=== PATIENT | male | born 1940 | race Caucasian/White ===

== ENCOUNTER → 2018-01-17 | Outpatient (CLI) | payer MEDICARE, OTHER ==
[~2018-01-17] MED LIST: CARDI-OMEGA1000 MG PO; CELEBREX 200MG200 MG PO; CENTRUM SILVER1 CTB PO; CENTURY SENIOR PO; FERROUS SU325 MG/TAB PO; FOLIC ACID 40400 MCG PO; IRON325 M1 PO; ULTRAM 50MG TAB50 MG PO; VITAMIN C500 MG PO; VITAMIN D 1001000 IU PO; XARELTO10 MG PO
== END ==
LOC: COL.RAD 08:49
DX: Z85.46 Personal history of malignant neoplasm of prostate (principal); Z96.641 Presence of right artificial hip joint
CPT/HCPCS: A9503

== ENCOUNTER 2022-05-24 10:39 | Inpatient (IN) | payer MEDICARE ==
[~2022-05-24] VITALS: Ht 190.5 cm; Wt 83.1 kg
[~2022-05-24 10:39] MED LIST changes: +COZAAR 25MG25 MG/TAB PO; +OSCAL 500 TAB500 MG PO; +TOPROL XL 25MG25 MG PO
[2022-05-24] MEDS ORDERED: ASPIRIN 81M81 MG/TA2 PO (13:35)
[2022-05-24] MEDS ORDERED: NORCO 325 MG-51 TAB PO (13:36)
[2022-05-24] MEDS ORDERED: DOXYCYCLINE 10100 MG PO (13:36)
[2022-05-24 15:24] VITALS: BP 111/60; PULSE 89; TEMP 98.7
--- NOTE | 2022-05-24 16:10 | NUR ---
PATIENT ARRIVED TO REHAB AT 324PM. PATIENT ALERT AND ORIENTED AND CAME FROM SURGICAL UNIT. PATIENT HAD A LEFT HIP REPLACEMENT. LUNG CLEAR , BOWEL SOUND ACTIVE AND HAD A LARGE BOWEL MOVEMENT. PATIENT ABLE TO EAT AND TALK WITH OUT ANY ISSUE. PATIENT WEAR GLASS AND HEARING AIDES. PATIENT STATED THAT HIS RIGHT EAR IS CLOG UP AND NEED DEBROX .
[2022-05-24 18:07] VITALS: BP 120/47; PULSE 93; TEMP 98.2
--- NOTE | 2022-05-24 19:06 | NUR ---
RECEIVED CHANGE OF SHIFT REPORT FROM DAY SHIFT RN. PATIENT UP IN CHAIR, SLEEPING, DID NOT WAKE DURING NURSING ROUNDS, EXIT ALARM ON, CALL LIGHT WITHIN REACH. BREATHING NONLABORED AND EVEN.
[2022-05-24 20:50] VITALS: BP 116/56; PULSE 94
[2022-05-25 05:18] VITALS: BP 113/54; PULSE 85; TEMP 98.8
--- NOTE | 2022-05-25 07:10 | NUR ---
Shift report received from fuel retrofitting technician RN
--- NOTE | 2022-05-25 07:16 | NUR ---
CHANGE OF SHIFT REPORT GIVEN TO DAY SHIFT RNTRACEE.
--- NOTE | 2022-05-25 10:24 | NUR ---
Follow-up visit; Patient thanked Sql Database Programmer for checking in on him in Rehab. He is doing ok and had a shower which made him feel good. Sql Database Programmer wished him a good day and God's blessings.
--- NOTE | 2022-05-25 12:08 | NUR ---
Pt sitting up in recliner with BLE elevated on footrest. Pt reports mild left hip pain after morning PT/OT sessions but denies the need for pain medication at this time. Blanchable redness noted to coccyx; skin is intact. Waffle overlay placed on bed mattress. Air cushion placed in recliner. Pt denies additional needs at this time. Call light is in his reach. Chair alarm is on
--- NOTE | 2022-05-25 13:11 | NUR ---
Pt is off the unit to work with PT
--- NOTE | 2022-05-25 15:36 | NUR ---
SW met with the patient to complete intake, as the patient is new to [facility]. The patient lives in [place] with his daughter, Della (ph#[phone]), and granddaughter. He shares that his daughter is building a home in [place], so they will be staying with him for probably around 7 months. He reports independence with ADLs before surgery and has a cane, walker, showerbench, and [id number]. The patient's PCP is Dr. Ricardo Huang and he receives his medications from [facility]. The patient's DPOA-HC is in EMR and it designates his daughter, Della, and son, Vineet. Vineet lives in [place]. The patient states that therapy has worked him and he is sore now, but it is to be expected. He had no concerns for SW.
[2022-05-25 17:09] VITALS: BP 119/81; PULSE 97; TEMP 98.2
--- NOTE | 2022-05-25 20:15 | NUR ---
PT ASSISTED TO BR WITH WALKER BY JOSE ROBERTO. PT HAD LEAKED SOME URINE AROUND BSC. CLEANED UP. ASSISTED BACK TO BED. PT ABLE TO LOOSEN AFO BLE AND WITH MINIMAL ASSIST REMOVE . PT WEARS BRIEFS FOR MINIMAL URINARY LEAKAGE. CHANGED BRIEFS. REMOVED PANTS FOR THE NIGHT. WANTED SAME SHIRT LEFT ON. NEEDED ASSIST LIFTING LEGS INTO BED. SCD'S ON BILAT. CALL LIGHT IN REACH. BED ALARM SET.
[2022-05-26 05:22] VITALS: BP 133/63; PULSE 83; TEMP 97.4
--- NOTE | 2022-05-26 07:00 | NUR ---
BEDSIDE REPORT DONE WITH CLAUDIA.CALL LIGHT IN REACH
--- NOTE | 2022-05-26 09:48 | NUR ---
ASSESSMENT DONE ORDER. LUNG CLEAR IN ALL LOBES. BOWEL SOUND ACTIVE IN ALL 4 QUADS. ABLE TO GET UP WITH ASSISTANCE. USE WALKER AND GAIT BELT. PATIENT USE AFO FOR SHOES.
[2022-05-26 17:34] VITALS: BP 125/43; PULSE 72; TEMP 97.6
--- NOTE | 2022-05-26 20:30 | NUR ---
PT SITTING IN RECLINER. ASSISTED TO BR WITH WALKER. UNSTEADY. WEAR AFO'S IN SHOES. HAD LG LOOSE BROWN BM. PT ABLE TO PROVIDE OWN PERICARE. ASSISTED BACK TO BED. CHANGED CLOTHES W/ MINIMAL ASSIST. ABLE TO LIFT LEGS INTO BED. SCD'S ON BILAT. PILLOW BETWEEN LEGS. READY FOR SLEEP. CALL LIGHT IN REACH. BED ALARM SET.
--- NOTE | 2022-05-26 21:25 | NUR ---
Has lack of transportation kept you from medical appts, meetings, work, or from getting things needed for daily living? NO How often do you feel lonely or isolated from those around you? NEVER Over the past 5 days, how much of the time has pain made it hard for you to sleep? FREQUENTLY Over the past 5 days, how often have you limited your participation in therapy due to pain? RARELY/NOT AT ALL Over the past 5 days, how often have you limited your day-to-day activities because of pain? RARELY/NOT AT ALL Have you had 2 or more falls in the past year or any fall with an injury? NO Did you have major surgery during the 100 days prior to admission? YES
[2022-05-27 06:00] VITALS: BP 145/86; PULSE 86; TEMP 98.3
--- NOTE | 2022-05-27 06:12 | NUR ---
PT HAS WELL THROUGH THE NIGHT . NO DISTRESS.
--- NOTE | 2022-05-27 06:52 | NUR ---
Shift report received from manager foreign RN
--- NOTE | 2022-05-27 09:09 | NUR ---
Pt is off the unit for PT
--- NOTE | 2022-05-27 11:42 | NUR ---
Pt is back in his room after Group Therapy. He is sitting up in the recliner w/ BLE elevated on the footrest. Aquacell to left hip is CDI. He reports minimal left hip discomfort but denies the neeeds for pain medication at this time. He denies additional needs. Call light is in his reach. Chair alarm is on
[2022-05-27 17:30] VITALS: BP 132/42; PULSE 95; TEMP 97.9
--- NOTE | 2022-05-27 23:19 | NUR ---
Pt in recliner for shift assessment at 2014. A&O x4. Requesting assistance to use the restroom at this moment. Gait belt and walker used to ambulate. Left hip dressing is CDI. No IV line. Continent loose BM. SCDs placed. Medications given per emar. Belongings and call light within reach.
[2022-05-28 05:24] VITALS: BP 139/73; PULSE 79; TEMP 97.9
--- NOTE | 2022-05-28 05:57 | NUR ---
Pt requested assistance once during the night for emptying his urinal. Uneventful night. No needs or concerns expressed. Pt denies any pain or discomfort. Call light and belongings are within reach.
--- NOTE | 2022-05-28 06:44 | NUR ---
Shift report received from operation shift supervisor RN
--- NOTE | 2022-05-28 10:24 | NUR ---
Pt supervised as he positioned independently to sit on edge of bed. CGA provided as he moved to standing position. SBA/CGA while ambulating to toilet w/ FWW. Pt independent with toilet hygiene and clothing mgmt after toileting with supervision provided d/t Fall Policy. SBA while pt standing at sink to brush his teeth and wash his hands. SBA while pt ambulated from sink to recliner. Lt. hip aquacell CDI. Pt reports minimal pain but denies the need for pain medication. Denies additional needs. Call light is in his reach. Chair alarm is on.
[2022-05-28 17:28] VITALS: BP 138/64; PULSE 86; TEMP 98.3
--- NOTE | 2022-05-28 20:00 | NUR ---
ASSISTED PT TO BR FROM RECLINER WITH WALKER. PT ABLE TO MANAGE TOILETING TASKS. HAD LG LOOSE BROWN BM. CHANGED BRIEFS. DOES HAVE SOME URINARY LEAKAGE. TO BED. ABLE TO LIFT LEGS INTO BED PER SELF. SCD'S ON BILAT. CALL LIGHT IN REACH. BED ALARM SET.
[2022-05-29 05:27] VITALS: BP 137/73; PULSE 77; TEMP 97.8
--- NOTE | 2022-05-29 06:54 | NUR ---
Shift report received from automation sales manager RN
--- NOTE | 2022-05-29 08:31 | NUR ---
Call placed to Dr. Krueger's office re: When can left hip aquacell be changed or how often. Dressing is CDI. Transformer Assembly Supervisor stated that Dr. Krueger is in surgery for most of the morning and will call back.
--- NOTE | 2022-05-29 09:51 | NUR ---
Dressing change order found in physician's progress notes: may remove on POD#5, if saturated, may replace.
--- NOTE | 2022-05-29 11:14 | NUR ---
Pt is off the unit for PT
--- NOTE | 2022-05-29 11:27 | NUR ---
Pt back in room after PT. Left hip Aquacell CDI. Removed dressing and incision left DANY. No drainage, redness, swelling. Incision well approximated
--- NOTE | 2022-05-29 13:26 | NUR ---
Admission QIM scores were reviewed by the team. Code of 5 chosen for eating was determined by team discussion to be the most usual performance before interventions for this patient during the assessment period. Code of 4 chosen for toilet hygiene was determined by team discussion to be the most usual performance before interventions for this patient during the assessment period. Code of 3 chosen for toilet transfer was determined by team discussion to be the most usual performance before interventions for this patient during the assessment period. Code of 3 chosen for lower body dressing was determined by team discussion to be the most usual performance before interventions for this patient during the assessment period. Code of 2 chosen for putting on/taking off footwear was determined by team discussion to be the most usual performance before interventions for this patient during the assessment period. Code of 3 chosen for sit to lying was determined by team discussion to be the most usual performance before interventions for this patient during the assessment period. Code of 4 chosen for lying to sitting on side of bed was determined by team discussion to be the most usual performance before interventions for this patient during the assessment period. Code of 3 chosen for sit to stand was determined by team discussion to be the most usual performance for this patient during the discharge assessment period. Code of 3 chosen for chair/bed to chair transfer was determined by team discussion to be the most usual performance before interventions for this patient during the assessment period. Code of 4 chosen for walk 10 feet was determined by team discussion to be the most usual performance for this patient during the discharge assessment period.--PD Parul
--- NOTE | 2022-05-29 15:29 | NUR ---
Right ear irrigation performed using warm water and syringe. Pt seated in upright position during irrigation. Moderate amount of dark brown to light brown debris noted in emesis basin used for water collection during the irrigation. TM shiny, steele, with adonay appearance after ear irrigation. Pt denies dizziness or pain during ear irrigation and after.
--- NOTE | 2022-05-29 16:07 | NUR ---
Pt reporting irritation to left hip incision from pullup diaper rubbing against it while he is working with PT or walking. Partial air strip dressing applied over incision. Proximal end of incision is red. No drainage.
[2022-05-29 17:39] VITALS: BP 122/65; PULSE 90; TEMP 98
--- NOTE | 2022-05-29 18:15 | NUR ---
Pt sitting up in recliner. He ate 100% of his dinner independently. He denies right ear pain or dizziness. He reports that he is able to hear better as his right hearing aid fits better into his ear. He denies general pain/discomfort. Denies additional needs. Call light is in his reach. Chair alarm is on.
--- NOTE | 2022-05-29 19:00 | NUR ---
RECEIVED CHANGE OF SHIFT REPORT FROM DAY SHIFT RN.
[2022-05-29 22:17] VITALS: BP 122/52
[2022-05-30 05:16] VITALS: BP 137/54; PULSE 80; TEMP 97.8
--- NOTE | 2022-05-30 06:43 | NUR ---
CHANGE OF SHIFT REPORT GIVEN TO DAY SHIFT RNVINNIE.
--- NOTE | 2022-05-30 08:25 | NUR ---
Pt. sitting up in bed. Pt. is A&OX3, assessment complete. Pt. assisted with 1 assist, gait belt and walker to the bathroom then to the chair. Pt. denies pain or other needs, call light within reach.
--- NOTE | 2022-05-30 14:44 | NUR ---
Coding And Reimbursement Specialist met with patient to check in. Patient stated rehab is going well and he has no questions or concerns this afternoon. SW advised she would follow up again after team conference.
[2022-05-30 17:30] VITALS: BP 139/68; PULSE 96; TEMP 99
--- NOTE | 2022-05-30 19:31 | NUR ---
RECEIVED CHANGE OF SHIFT REPORT FROM DAY SHIFT RN.
[2022-05-30 20:20] VITALS: BP 131/60; PULSE 95
[2022-05-31 05:08] VITALS: BP 155/74; PULSE 75; TEMP 97.9
--- NOTE | 2022-05-31 06:26 | NUR ---
PATIENT UP TO BATHROOM, TOOK SHIRT OFF AND PUT ON LONG SLEEVE SHIRT WITH NO REPORTED PROBLEMS. UP IN CHAIR TO PUT ON PANTS AND SOCKS AND FOOTWEAR WITH NO STAFF ASST, USING APPROPRIATE ASSISTIVE DEVICES.
--- NOTE | 2022-05-31 06:43 | NUR ---
BEDSIDE REPORT DONE ORDER WITH NIGHT NURSE ANA
--- NOTE | 2022-05-31 07:05 | NUR ---
CHANGE OF SHIFT REPORT GIVEN TO DAY SHIFT RNTOMÁS.
--- NOTE | 2022-05-31 09:15 | NUR ---
ASSESSMENT DONE ORDER. PATIENT ALERT AND ORIENTED X4. LUNG CLEAR, BOWEL SOUND ACTIVE. PATIENT ABLE TO GET UP WITH WALKER.
--- NOTE | 2022-05-31 14:54 | NUR ---
Salesperson Sheet Music met with patient to review and provided copy of team conference notes. Patient is agreeable to discharge date of Sunday, Jun 02. BC discussed recommendation for Home Health. Patient would prefer outpatient PT at [facility], but advised he would consider HH and review Medicare.gov list of HH agencies BC provided. Patient also advised he has a walker at home. BC contacted patient's daughter, Della to review discharge. Della is in agreement with discharge date and recommendation for HH. Della advised she will encourage patient to accept HH.
--- NOTE | 2022-05-31 16:40 | NUR ---
received new order for ear drop from rountinely to prn bid. I also received an order for UA due to patient was stated that he was up every 1hour last night urinated. UA was sent to labs
[2022-05-31 16:42] LABS: PH 5.5 (5.0-8.5); URINE APPEARANCE Clear (CLEAR/HAZY); URINE BLOOD 1+ (NEGATIVE); URINE COLOR Yellow (YELLOW); URINE GLUCOSE Negative (NEGATIVE); URINE KETONE Negative (NEGATIVE); URINE NITRATE Negative (NEGATIVE); URINE PROTEIN(semi-quant) Negative (NEGATIVE); URINE UROBILINOGEN 0.2 E.U/dL (0.2-1.0)
--- NOTE | 2022-05-31 16:44 | NUR ---
JANETT DIOR WILL BE VISITING PATIENT TOMORROW INSTEAD OF HIM VISITING HER AT [facility].
[2022-05-31 16:50] VITALS: BP 118/64; PULSE 93; TEMP 98.5
[2022-05-31 16:52] LABS: MUCOUS Present (NOT PRESENT); SQUAMOUS EPITHELIAL None Seen /hpf (0-10); URINE BACTERIA None Seen /hpf (NONE SEEN)
[2022-05-31 17:04] LABS: COLLECTION METHOD CLEAN CATCH
--- NOTE | 2022-05-31 19:00 | NUR ---
RECEIVED CHANGE OF SHIFT REPORT FROM DAY SHIFT RN.
[2022-05-31 22:40] VITALS: BP 138/61
[2022-06-01 05:23] VITALS: BP 113/60; PULSE 88; TEMP 97.9
--- NOTE | 2022-06-01 06:48 | NUR ---
BEDSIDE REPORT DONE ORDER WITH NIGHT NURSE ANA.
--- NOTE | 2022-06-01 07:15 | NUR ---
CHANGE OF SHIFT REPORT GIVEN TO DAY SHIFT RNTOMÁS.
--- NOTE | 2022-06-01 08:52 | NUR ---
ASSESSMENT DONE ORDER. PATIENT ALERT AND ORIENTED. ABLE TO MAKE NEEDS KNOWN. PATIENT ATE ABOUT 80% OF HIS FOOD. PATIENT ABLE TO GET UP BUT WITH MIN ASSISTANCE. HAVE DROP FEET, USE AFO WITH SHOES. PATIENT INCINSION SITE CLEAN AND I WILL CHANGE DRESSING TODAY AFTER SHOWER WITH OT.
--- NOTE | 2022-06-01 16:01 | NUR ---
Has lack of transportation kept you from medical appts, meetings, work, or from getting things needed for daily living? NO How often do you feel lonely or isolated from those around you? NEVER Over the past 5 days, how much of the time has pain made it hard for you to sleep? OCCASIONALLY Over the past 5 days, how often have you limited your participation in therapy due to pain? RARELY/NOT AT ALL Over the past 5 days, how often have you limited your day-to-day activities because of pain? RARELY/NOT AT ALL
--- NOTE | 2022-06-01 16:21 | NUR ---
Food Scientist met with patient who is agreeable to Home Health and would like referral sent to [facility]. SW also presented IM form to patient who verbalized understanding and provided signature. BC placed form in chart and provided copy to patient. BC then contacted Rusty at [facility] and gave referral.
[2022-06-01 16:58] VITALS: BP 139/71; PULSE 88; TEMP 98.8
--- NOTE | 2022-06-01 18:23 | NUR ---
patient alert and oriented x 4. patient will be discharge tomorrow. Bianka ROWLAND was suppost to be here to visit patient regarding his left hip site. she did not visit at this time.will [facility] night nurse to look out for her if she visit in evening.
[2022-06-02 05:28] VITALS: BP 106/54; PULSE 84; TEMP 98.2
--- NOTE | 2022-06-02 06:40 | NUR ---
shift report received from KLAUS Jiménez
--- NOTE | 2022-06-02 08:00 | NUR ---
JANETT Alonso in to see patient, the patient informed student he had a moment of a little confusion but is OK now, did appear to be falling asleep while talking with PA, will monitor
--- NOTE | 2022-06-02 08:00 | NUR ---
awake resting in bed, had breakfast and tolerated well, full assessment completed, see interventions for further info, denies needs at this time
--- NOTE | 2022-06-02 08:10 | NUR ---
physical therapy in to work with patient, assisted up and out of bed
[2022-06-02] MEDS ORDERED: ASPIRIN 81M81 MG/TA2 PO (09:11)
--- NOTE | 2022-06-02 10:13 | NUR ---
up in WC and packing belongings, stood up and assessed cocyx and buttocks, cocyx is slightly reddened but no pressure ulcer
--- NOTE | 2022-06-02 11:34 | NUR ---
dressed and sitting up in recliner
--- NOTE | 2022-06-02 12:40 | NUR ---
discharge instructions given to patient, verbalizes understanding
--- NOTE | 2022-06-02 13:48 | NUR ---
Discharge QIM scores were reviewed by the team. Code of 6 chosen for toilet hygiene was determined by team discussion to be the most usual performance for this patient during the discharge assessment period. Code of 6 chosen for toilet transfer was determined by team discussion to be the most usual performance for this patient during the discharge assessment period. Code of 6 chosen for upper body dressing was determined by team discussion to be the most usual performance for this patient during the discharge assessment period. Code of 3 chosen for lower body dressing was determined by team discussion to be the most usual performance for this patient during the discharge assessment period. Code of 3 chosen for putting on/taking off footwear was determined by team discussion to be the most usual performance for this patient during the discharge assessment period. Code of 6 chosen for sit to stand was determined by team discussion to be the most usual performance for this patient during the discharge assessment period. Code of 6 chosen for chair/bed to chair transfer was determined by team discussion to be the most usual performance for this patient during the discharge assessment period. Code of 6 for car transfer was determined by team discussion to be the most usual performance for this patient during the discharge assessment period. Code of 6 chosen for walk 10 feet was determined by team discussion to be the most usual performance for this patient during the discharge assessment period. Code of 6 chosen for walk 50 feet w/ 2 turns was determined by team discussion to be the most usual performance before interventions for this patient during the discharge assessment period. Code of 6 chosen for walk 150 feet was determined by team discussion to be the most usual performance for this patient during the discharge assessment period. Code of 6 chosen for walk 10 feet on uneven surface was determined by team discussion to be the most usual performance for this patient during the discharge assessment period. Code of 6 chosen for 12 steps was determined by team discussion to be the most usual performance for this patient during the discharge assessment period.--PD Parul
--- NOTE | 2022-06-02 14:00 | NUR ---
discharged per WC
--- NOTE | 2022-06-02 15:05 | NUR ---
Collar Closer Lockstitch met with patient who advised he is looking forward to getting home today. Patient's grandson will pick him up at 1400. BC contacted Rusty at [facility] and faxed discharge orders. Rusty advised they have patient scheduled to start services tomorrow.
== END 2022-06-02 14:00 | disposition home health service (06) | DRG 561 ==
PROVIDERS: Physician Assistant; ADMIT Physical Medicine & Rehabilitation Sports Medicine
DX: Z47.1 Aftercare following joint replacement surgery (principal); M21.372 Foot drop, left foot; M21.371 Foot drop, right foot; D64.89 Other specified anemias; I10 Essential (primary) hypertension; R26.89 Other abnormalities of gait and mobility; G62.9 Polyneuropathy, unspecified; Z96.643 Presence of artificial hip joint, bilateral; Z73.6 Limitation of activities due to disability; Z79.891 Long term (current) use of opiate analgesic; Z79.899 Other long term (current) drug therapy; Z85.46 Personal history of malignant neoplasm of prostate; Z90.79 Acquired absence of other genital organ(s); H61.20 Impacted cerumen, unspecified ear; R35.0 Frequency of micturition
CPT/HCPCS: A9284